=== PATIENT | female | born 1940 | race Caucasian/White ===

== ENCOUNTER → 2023-06-15 | Outpatient (REF) | payer MEDICARE | LOC: SKLAB2 12:50 | PROVIDERS: ATTEND Internal Medicine | DX: Z53.8 Procedure and treatment not carried out for other reasons (principal) ==

== ENCOUNTER → 2023-06-15 | Outpatient (REF) | payer MEDICARE ==
[2023-06-15 11:38] LABS: HEMATOCRIT 28.3 % (36.0-47.0); HEMOGLOBIN 8.7 g/dl (12.0-15.5); MEAN CORPUSCULAR HEMOGLOBIN 29.6 pg (27.0-33.0); MEAN CORPUSCULAR HGB CONC 30.7 g/dl (32.0-36.5); MEAN CORPUSCULAR VOLUME 96.3 fl (80.0-96.0); PLATELET COUNT, AUTOMATED 298 10^3/uL (150-450); RED BLOOD COUNT 2.94 10^6/uL (4.00-5.40); WHITE BLOOD COUNT 10.2 10^3/uL (4.0-10.0)
[2023-06-15 13:05] LABS: ALBUMIN 2.2 G/DL (3.2-5.2); ALKALINE PHOSPHATASE 148 U/L (46-116); ALT/SGPT 15 U/L (7.0-40); AST/SGOT 27 U/L (<34); BILIRUBIN,TOTAL 0.6 MG/DL (0.3-1.2); BLOOD UREA NITROGEN 22 MG/DL (9-23); CALCIUM LEVEL 7.9 MG/DL (8.3-10.6); CARBON DIOXIDE LEVEL 30 MMOL/L (20-31); CHLORIDE LEVEL 99 MMOL/L (98-107); CREATININE FOR GFR 2.02 MG/DL (0.55-1.30); GLUCOSE, FASTING 150 MG/DL (74-106); POTASSIUM SERUM 3.2 MMOL/L (3.5-5.1); SODIUM LEVEL 137 MMOL/L (136-145); THYROID STIMULATING HORMONE 2.174 uIU/ML (0.55-4.78); TOTAL PROTEIN 6.1 G/DL (5.7-8.2)
[2023-06-15 13:06] LABS: VITAMIN B12 LEVEL > 2000 PG/ML (211-911)
== END ==
LOC: SKLAB2 10:59
PROVIDERS: ATTEND Internal Medicine
DX: N18.6 End stage renal disease (principal); E03.9 Hypothyroidism, unspecified; E78.5 Hyperlipidemia, unspecified; E55.9 Vitamin D deficiency, unspecified; E53.8 Deficiency of other specified B group vitamins; E11.22 Type 2 diabetes mellitus with diabetic chronic kidney disease

== ENCOUNTER → 2023-06-15 | Outpatient (CLI) | payer MEDICARE | LOC: M RAD 13:37 | PROVIDERS: ATTEND Internal Medicine | DX: M25.511 Pain in right shoulder (principal); M85.872 Other specified disorders of bone density and structure, left ankle and foot; M79.89 Other specified soft tissue disorders; M77.32 Calcaneal spur, left foot; Z91.81 History of falling; M19.011 Primary osteoarthritis, right shoulder; M19.021 Primary osteoarthritis, right elbow; M25.572 Pain in left ankle and joints of left foot ==

== ENCOUNTER → 2023-07-07 | Outpatient (REF) | payer MEDICARE ==
[2023-07-07 17:33] LABS: CALCIUM LEVEL 8.3 MG/DL (8.3-10.6); CREATININE FOR GFR 2.21 MG/DL (0.55-1.30); GLOMERULAR FILTRATION RATE 22.6 (>32); POTASSIUM SERUM 4.3 MMOL/L (3.5-5.1)
[2023-07-07 18:44] LABS: CREATININE, SERUM 2.2 MG/DL (0.55-1.02)
[2023-07-07 19:23] LABS: CREATININE 24 HOUR, URINE 167.6 MG/24HR (600-1800); CREATININE CLEARANCE, URINE 5.3 ML/MIN (75-115); CREATININE, URINE 104.75 MG/DL
== END ==
LOC: SKLAB2 06:50
PROVIDERS: ATTEND Internal Medicine
DX: N19 Unspecified kidney failure (principal)

== ENCOUNTER → 2023-07-08 | Outpatient (REF) | payer MEDICARE ==
[2023-07-08 15:54] LABS: CREATININE FOR GFR 2.13 MG/DL (0.55-1.30); GLOMERULAR FILTRATION RATE 23.6 (>32)
== END ==
LOC: SKLAB2 12:49
PROVIDERS: ATTEND Internal Medicine
DX: N19 Unspecified kidney failure (principal)

== ENCOUNTER → 2023-07-09 | Outpatient (REF) | payer MEDICARE ==
[2023-07-09 15:36] LABS: CREATININE, URINE 61.6 MG/DL
== END ==
LOC: SKLAB2 14:58
PROVIDERS: ATTEND Internal Medicine
DX: N18.6 End stage renal disease (principal)

== ENCOUNTER → 2023-07-13 | Outpatient (REF) | payer MEDICARE ==
[2023-07-13 13:35] LABS: BASO % 0.5 % (0.0-1.0); EOS % 0.4 % (0.0-3.0); HEMATOCRIT 30.9 % (36.0-47.0); HEMOGLOBIN 9.6 g/dl (12.0-15.5); MEAN CORPUSCULAR HEMOGLOBIN 31.9 pg (27.0-33.0); MEAN CORPUSCULAR HGB CONC 31.1 g/dl (32.0-36.5); MEAN CORPUSCULAR VOLUME 102.7 fl (80.0-96.0); MONO # 0.7 10^3/uL (0.0-0.8); MONO % 8.9 % (2.0-8.0); NEUTROPHILS # 6.1 10^3/uL (1.5-8.5); NEUTROPHILS % 76.8 % (36.0-66.0); PLATELET COUNT, AUTOMATED 218 10^3/uL (150-450); RED BLOOD COUNT 3.01 10^6/uL (4.00-5.40)
[2023-07-13 14:04] LABS: ALBUMIN 2.7 G/DL (3.2-5.2); CALCIUM LEVEL 7.5 MG/DL (8.3-10.6); CREATININE FOR GFR 1.86 MG/DL (0.55-1.30); GLOMERULAR FILTRATION RATE 27.5 (>32); PHOSPHORUS LEVEL 5.2 MG/DL (2.4-5.1)
== END ==
LOC: SKLAB2 11:57
PROVIDERS: ATTEND Internal Medicine
DX: N17.9 Acute kidney failure, unspecified (principal)

== ENCOUNTER → 2023-07-22 | Outpatient (CLI) | payer MEDICARE ==
[~2023-07-22] MED LIST: ACET1TAB55 PO; ACET650T61 PO; ALBU8.5H INH; ATOR40TA75 PO; B-12100010 PO; BISA10SU PR; CARB1DRO21 OP; ELIQ2.5T PO; FLEEENE12 PR; FURO40TA2 PO; LEVO50TA5 PO; LIDOCAINE 1% MDV 20ML VIAL As Ordered ONE; LIDOCAINE W/EPINEPHRINE 1% 20ML VIAL As Ordered ONE; LORA-243 PO; METO50TA7 PO; MONT10TA97 PO; PANT40TA29 PO
[2023-07-22 07:16] VITALS: TEMP 97.5
[2023-07-22 08:30] VITALS: BP 168/100; O2SAT 93
== END ==
LOC: M IRPRO 06:48
PROVIDERS: ATTEND Nurse Practitioner Family
DX: N18.4 Chronic kidney disease, stage 4 (severe) (principal); E78.00 Pure hypercholesterolemia, unspecified; I12.9 Hypertensive chronic kidney disease with stage 1 through stage 4 chronic kidney disease, or unspecified chronic kidney disease